=== PATIENT | male | born 1935 | race Caucasian/White ===

== ENCOUNTER 2021-07-29 20:27 | Emergency (ER) | payer MEDICARE ==
[~2021-07-29] VITALS: Ht 185.4 cm; Wt 89.4 kg
== END 2021-07-30 01:45 | disposition home or self-care (01) ==
LOC: ER 20:27
DX: D69.6 Thrombocytopenia, unspecified (principal); R58 Hemorrhage, not elsewhere classified
CPT/HCPCS: 36415; 36430; 74176; 86850; 86900; 86901; 99283-25; P9035

== ENCOUNTER 2021-08-03 14:41 | Emergency (ER) | payer MEDICARE ==
[~2021-08-03] VITALS: Ht 185.4 cm; Wt 90.7 kg
[2021-08-03 15:57] LABS: Hematocrit 25.9 % (37.0-53.0); Hemoglobin 8.6 g/dL (13.5-17.5); Mean Corpuscular HGB 29.8 pg (26.0-34.0); Mean Corpuscular HGB Conc 33.2 g/dL (31.5-36.5); Mean Corpuscular Volume 90 fL (80-100); NRBC ABSOLUTE 0.02 K/mm3 (0.00-0.02); NRBC Auto 0.2 /100 WBC (0.0-0.2); RDW Coefficient Variation 13.2 % (11.7-14.2); RDW Standard Deviation 43.2 fL (35.1-46.3); Red Blood Cell Count 2.89 M/mm3 (4.30-5.90); White Blood Cell Count 9.81 K/mm3 (4.00-11.30)
[2021-08-03 16:10] LABS: Platelet Count 7 K/mm3 (150-400)
[2021-08-03 16:11] LABS: Albumin, Blood 1.8 g/dL (3.4-5.0); Albumin/Globulin Ratio 0.3 (0.8-1.8); Bilirubin, Total 1.1 mg/dL (0.1-1.0); Bun/Creatinine Ratio 17.1 (12.0-20.0); Calcium, Blood 9.2 mg/dL (8.5-10.1); Creatinine, Blood 1.17 mg/dL (0.60-1.20); Potassium, Blood 4.4 mmol/L (3.5-5.5); Total Protein, Blood 7.8 g/dL (6.4-8.2)
[2021-08-03 17:27] LABS: BAND PERCENT MAN 16 % (0-8); BASOPHILS PERCENT MAN 0 % (0-2); EOSINOPHILS PERCENT MAN 0 % (0-6); LYMPHOCYTES % ATYPICAL MANUAL 4 % (0-0); LYMPHOCYTES ABSOLUTE MAN 3.13 K/mm3 (0.84-5.20); LYMPHOCYTES PERCENT MAN 28 % (21-46); METAMYELOCYTE ABSOLUTE MAN 0.19 K/mm3 (0.00-0.00); METAMYELOCYTE PERCENT MAN 2 % (0-0); MONOCYTES ABSOLUTE MAN 0.29 K/mm3 (0.16-1.47); MONOCYTES PERCENT MAN 3 % (4-13); MYELOCYTE ABSOLUTE MAN 1.56 K/mm3 (0.00-0.00); MYELOCYTE PERCENT MAN 16 % (0-0); NEUTROPHILS ABSOLUTE MAN 2.25 K/mm3 (1.96-9.15); SEG NEUTROPHILS PERCENT MAN 7 % (41-73); TOTAL CELLS COUNTED 100
[2021-08-03 17:37] LABS: Source, Urine Catheter
[2021-08-03 17:41] LABS: Appearance, Urine Clear (Clear); Bilirubin, Urine Neg (Neg); Blood, Urine Neg (Neg); Color, Urine Amber (P-Yellow); Glucose Qualitative, Urine Neg (Neg); Ketones, Urine Neg (Neg); Leukocyte Esterase, Urine Neg (Neg); Nitrite, Urine Neg (Neg); Protein, Urine 1+ (Neg); Urobilinogen, Urine NORM (Normal)
[2021-08-06 14:22] LABS: OTHER CELL PERCENT MAN 24 % (0-0)
== END 2021-08-03 22:20 | disposition home or self-care (01) ==
LOC: ER 14:41
PROVIDERS: Emergency Medicine; Physician Assistant
DX: D69.6 Thrombocytopenia, unspecified (principal); C92.00 Acute myeloblastic leukemia, not having achieved remission; Z88.8 Allergy status to other drugs, medicaments and biological substances
CPT/HCPCS: 36415; 36430; 71045; 80053; 85025; 86850; 86900; 86901; 86923; 99285-25; J7030; P9035